=== PATIENT | female | born 1955 | race Caucasian/White ===

== ENCOUNTER 2019-02-28 10:41 | Day surgery (SDC) | payer OTHER ==
[2019-02-22 14:27] VITALS: BMI 26.9
[2019-02-28] MEDS ORDERED: LIDOCAINE HCL/PF 2% SDV 5ML VIAL ONE (11:06)
[2019-02-28] MEDS ORDERED: PROPOFOL 20 ML ONE ×4 (11:06→13:45)
[2019-02-28] MEDS ORDERED: ePHEDrine SULFATE 50 MG/1 ML AMPULE ONE (11:23)
[2019-02-28] MEDS ORDERED: MIDAZOLAM HCL 2 MG/2 ML SINGLE DOSE VIAL ONE (11:46)
[2019-02-28] MEDS ORDERED: CEFAZOLIN 1 GM/D5W 1 GRAM/50 ML BAG IVPB ONE (11:52)
[2019-02-28] MEDS ORDERED: oxyCODONE HCL 5 MG TABLET PO PRN ×2 (12:06)
[2019-02-28] MEDS ORDERED: ONDANSETRON 4 MG/2 ML VIAL IVPUSH PRN (12:06)
[2019-02-28] MEDS ORDERED: LACTATED RINGERS SOLUTION 1,000 ML IV SCH (12:15)
[2019-02-28] MEDS ORDERED: LIDOCAINE HCL 1% PRESERVATIVE FREE - 30ML VIAL ONE (12:17)
[2019-02-28] MEDS ORDERED: BUPIVACAINE HCL/PF 0.5% (5MG/ML) 10 ML VIAL ONE (12:17)
[2019-02-28] MEDS ORDERED: ceFAZolin SODIUM 1 GM VIAL ONE (12:52)
[2019-02-28] MEDS ORDERED: DEXAMETHASONE SOD PHOSPHATE 4 MG/1 ML VIAL ONE (13:57)
[2019-02-28] MEDS ORDERED: KETOROLAC TROMETHAMINE 30 MG/1 ML VIAL IVPUSH ONE ×2 (14:35→14:45)
[2019-02-28] MEDS ORDERED: KETOROLAC TROMETHAMINE 30 MG/1 ML VIAL ONE (14:37)
[2019-02-28 15:14] VITALS: TEMP 97.6
[2019-02-28 16:49] VITALS: BP 122/76; PULSE 62
--- NOTE | 2019-03-03 17:15 | PATH ---
Surgical Pathology Report Patient Name: ANGEL VIDAL [facility]. Rec. 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 BONE RIGHT MIDDLE TOE, EXCISION: BONE WITH REACTIVE CHANGE. B. HEAD OF PROXIMAL PHALANX SECOND DIGIT RIGHT FOOT, EXCISION: CARTILAGE CAPPED BONE WITH FATTY MARROW SHOWING FOCAL DEGENERATIVE CHANGE. C. HEAD OF PROXIMAL PHALANX SECOND DIGIT LEFT FOOT, EXCISION: BONE WITH FATTY MARROW SHOWING FOCAL DEGENERATIVE CHANGE. SEPARATE SEGMENTS OF SKIN WITH NO DIAGNOSTIC ABNORMALITIES. Electronically Signed Cayla Munroe M.D. Gross Description A. Received in formalin labeled "bone right middle toe," is a 1.0 x 0.6 x 0.2 cm portion of bone. The specimen is submitted in toto in one cassette, following decalcification. B. Received in formalin labeled "head of proximal phalanx second digit right foot," is a 1.2 x 0.7 x 0.5 cm mcmahan-yellow portion of bone. A premium representative section is submitted in one cassette, following decalcification. C. Received in formalin labeled "head of proximal phalanx second digit left foot," is a 1.2 x 0.7 x 0.5 cm mcmahan-yellow portion of bone. Also received within the same container is a 1.2 x 0.6 cm mcmahan, elliptical, unremarkable portion of skin. Rug Cleaner Helper sections are submitted in one cassette, following decalcification. 03/02/201903/02/2019
--- NOTE | 2019-03-16 15:35 | OP ---
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 PROCEDURES: Arthroplasty proximal interphalangeal joint 2nd digit both feet and distal interphalangeal joint arthroplasty of the 3rd digit right foot. ANESTHESIA: Local with MAC. SURGEON: Estuardo Robb DPM HEMOSTASIS: Was obtained using a pneumatic ankle tourniquet both ankles at 250 mmHg. ESTIMATED BLOOD LOSS: Less than 1.0 mL total. PROCEDURE: With the patient's vital signs noted to be stable, she was brought into the operating room and placed on the OR table in the supine position. After local anesthesia was administered and obtained, an orthopedic sterile prepping and draping of both feet was performed. Now, a well-padded tourniquet at the right ankle was inflated to 250 mmHg. At this juncture, two transverse semi-elliptical incisions were made 0.7 cm in length centered over the DIPJ of the 3rd digit right foot. The skin incisions were carefully deepened and via sharp dissection an elliptical wedge of skin was excised. At this point, using sharp dissection, the skin and subcutaneous tissues were reflected away from the underlying DIPJ. Now, the extensor digitorum longus tendon at the DIPJ level was transected and retracted proximally. Now, the head of the middle phalanx of the 3rd digit right foot was resected in toto using a double-action bone cutter. The area was flushed with sterile saline. Now, much crystalline deposit or tophus was sharply dissected away from the underlying bone structures and from the subcutaneous tissues. This was done via sharp dissection. Again, the area after excision of this material was flushed with sterile saline. The extensor tendon was now repaired using a simple suture of 4-0 Vicryl. The skin was closed using simple sutures of 4-0 nylon. Now, attention was paid to the PIPJ of the 2nd digit right foot. Now, two longitudinal semi-elliptical incisions were made centered just proximal to the PIPJ 2nd . The incisions were approximately 1.0 cm in length. The skin incision was carefully deepened and via sharp dissection there was a skin wedge excised from the PIPJ. Now, the skin and subcutaneous tissues were sharply dissected away from the deeper structures, including the PIPJ. At this juncture, the extensor tendon of the 2nd digit was transected at the PIPJ level and retracted proximally. The medial and lateral ligaments of the PIPJ were transected and now the head of the proximal phalanx was excised. The area was flushed with sterile saline and the extensor tendon was repaired using one simple suture of 4-0 Vicryl and the skin was closed using simple sutures of 4-0 nylon. The tourniquet was now deflated and normal capillary filling time returned instantaneously to all digits of the right foot. Now, the tourniquet on the left foot was inflated, also to 250 mmHg, and the same, exact procedure that was performed on the 2nd digit of the right foot was performed on the 2nd digit of the left foot. Again, upon completion of the procedure, the tourniquet was deflated and normal capillary filling time returned instantaneously to the digits of the left foot. The prognosis is good. The wound expectancy is clean. ESTUARDO ROBB DPM [id number]
== END 2019-02-28 16:30 | disposition home or self-care (01) ==
LOC: FASU 10:41
PROVIDERS: ATTEND Podiatrist
PROC: 0SRQ0JZ Replacement of Left Toe Phalangeal Joint with Synthetic Substitute, Open Approach (ICD-10-PCS; 2019-02-28)
PROC: 0SRP0JZ Replacement of Right Toe Phalangeal Joint with Synthetic Substitute, Open Approach (ICD-10-PCS; principal; 2019-02-28 12:57)
DX: M20.42 Other hammer toe(s) (acquired), left foot (principal); M20.41 Other hammer toe(s) (acquired), right foot
CPT/HCPCS: 88304-TC; 88311-TC; 94760